=== PATIENT | female | born 1960 | race Caucasian/White ===

== ENCOUNTER 2023-09-11 10:08 | Inpatient (IN) | payer OTHER, SELFPAY ==
[2023-09-11] VITALS (16 sets, daily range): BP systolic 85–120; BP diastolic 63–91; PULSE 2–123; BMI 24.0; BMI 22.5
[2023-09-11] MEDS: DUONEB 3 ML INH ×2 (05:41→14:00)
[2023-09-11 06:08] LABS: % Basophils 0.2 % (0-2); % Immature Granulocytes 0.7 % (0-0.5); % Lymphocytes 2.8 % (20.5-51.1); % Monocytes 6.3 % (1.7-9.3); Absolute Immature Granulocytes 0.1 10^3/uL (0-0.05); Absolute Lymphocytes 0.6 10^3/uL (1.2-3.4); Absolute Monocytes 1.3 10^3/uL (0.1-0.6); Absolute Neutrophils 18.2 10^3/uL (1.4-6.5); Hemoglobin 12.4 g/dL (12.0-16.0); Mean Corp Hgb Conc. 31.8 g/dL (33.0-37.0); Mean Corpuscular Hgb 30.9 pg (27.0-31.0); Mean Corpuscular Volume 97.3 fL (81.0-99.0); Mean Platelet Volume 10.6 fL (7.4-10.4); Nucleated Red Blood Cells % 0 %; Platelet Count 304 10^3/uL (130-400); Red Blood Cell Count 4.01 10^6/uL (4.20-5.40); Red Cell Dist. Width 15.6 % (11.5-14.5); White Blood Cell Count 20.2 10^3/uL (4.8-10.8)
[2023-09-11 06:20] LABS: Lactic Acid 3.9 mmol/L (0.7-2.0)
[2023-09-11 06:22] LABS: B.E. 5.9 mmol/L; HCO3 32.5 mmol/L (21-28); O2 Saturation % 99.1 % (94-98); PCO2 55 mmHg (32-35); PO2 101 mmHg (83-108); pH 7.38 (7.35-7.45)
[2023-09-11 06:31] LABS: Albumin 3.4 g/dl (3.5-5.0); Alkaline Phosphatase 109 U/L (38-126); Blood Urea Nitrogen 41 mg/dl (7-17); Carbon Dioxide 35 mmol/L (22-30); Chloride 104 mmol/L (98-107); Glucose 139 mg/dl (70-99); Potassium 5.2 mmol/L (3.5-5.1); Sodium 146 mmol/L (135-145); Total Protein 6.8 g/dl (6.3-8.2); eGFR > 60.00
[2023-09-11 06:38] LABS: ALT (SGPT) 665 U/L (0-35); AST (SGOT) 984 U/L (14-36); NT-proBNP > 27000 pg/ml; Troponin I 0.131 ng/ml
[2023-09-11 06:45] LABS: COVID-19 Antigen Negative (Negative)
[2023-09-11] MEDS: ZOSYN 50 IV (07:01)
--- NOTE | 2023-09-11 07:03 | ED.GENMED ---
History of Present Illness
General
Chief Complaint: Breathing Problem
Source: spouse, family, ambulance crew and snf records
Exam Limitations: clinical condition
Time Seen by Provider: 09/11/23 05:23
Nursing documentation reviewed up to this point in time: agreed with
Travel History
Have you had any contact with someone who has COVID-19?: Unable to Answer
Do you have any symptoms of coronavirus? Fever > 100 degrees, chills, cough, shortness of breath, sore throat, loss of taste or smell, muscle aches, or headache?: Unable to Answer
History of Present Illness
History of Present Illness:
62-year-old female with a past medical history of Wibaux's disease, chronic dysphagia who presents to the emergency room from snf via EMS for evaluation of respiratory distress. Patient is companied by her and her daughter who
are at the bedside. She cannot meaningfully participate in history she is nonverbal/unresponsive and this is her baseline due to advanced Wibaux's disease. According to EMS nursing staff at [facility] noticed that she was having increasing
shortness of breath and wheezing over the past 24 hours and appeared to be in distress earlier this morning and so EMS was called to bring her to the hospital. She was tachypneic and hypoxic for EMS. According to family she had a recent admission
at [facility] in July for pneumonia and also had a humerus fracture that was treated nonoperatively. Patient is a DNR/DNI.
Review of Systems
Review of Systems
Unable to obtain full review of systems at this time due to: due to acuity
All Other Systems: Not applicable
Phy Exam
Physical Exam
Physical Exam:
General: Laying in bed eyes open but not responsive to verbal stimuli; winces to pain
Head: Normocephalic, atraumatic
Eyes: Conjunctiva normal, pupils equal round and reactive to light bilaterally
Throat: Dry mucous membranes
Neck: Trachea midline, no JVD
Lungs: Patient is tachypneic, hypoxic, increased work of breathing, diffuse rhonchorous breath sounds
Heart: Tachycardia with regular rhythm, no murmurs, gallops, or rubs appreciated
Abd: Soft, non distended, no masses
Extremities: Warm and well-perfused with good pulses in all extremities
Scores
Heart Failure Risk
Heart Failure Risk Score: Not Applicable
Heart Score for Chest Pain Patients
STEMI patient?: Not applicable
Withdrawal Assessment of Alcohol
Withdrawal Assessment Completed?: Not applicable
Course
Orders/Labs/Results
Orders:
Orders
09/11/23 05:09
Electrocardiogram (*1) Urgent
Reason for Study: Other
Other Reason for Exam: Respiratory Distress
Cardiac Monitoring- Treatment ONCE
EKG- Treatment ONCE
IV Insert/Care/Rem.- Treatment PRN
CR Chest Portable - 1 View Urgent
Comment:
Reason For Exam: respiratory distress
Reason Study Needs to be Portable: Patient Unstable
O2 Therapy [RESP] Urgent
Titrate/Wean O2 to maintain O2 sat greater than (%): 93
Special Instructions: TO MAINTAIN CONTINUOUS O2 SATS >/= 93%
Pulse Ox/cont/shift [RESP] Urgent
Quantity: 1
Special Instructions: continuous pulse ox
09/11/23 05:36
Ipratropium/Albuterol Sulfate [Duoneb] 3 ml INH R NOW STA
09/11/23 05:37
Urinalysis Reflex To Culture Urgent
Piperacillin/Tazo 3.375 Gram [Zosyn] 3.375 gram in 50 ml IV NOW
Vancomycin [Vancocin] 1,250 mg 0.9% Sodium Chloride 250 ml [Nss] 250 ml IV NOW
09/11/23 05:52
Complete Blood Count/With Diff Urgent
Comprehensive Metabolic Panel Urgent
NT-proBNP Urgent
Troponin I Urgent
09/11/23 05:54
COVID-19 Antigen Urgent
Source: Nasal Swab
Lactate Level [Lactic Acid] Urgent
Blood Culture Q30M
[facility] Source: Blood/Venous
Specimen Description:
Blood Culture Q30M
[facility] Source: Blood/Venous
Specimen Description:
Influenza A+B Rapid Molecular Urgent
[facility] Source: Nasal Swab
Specimen Description:
09/11/23 05:59
ABG [Arterial Blood Gas] Urgent
%Oxygen/Room Air: 88
09/11/23 06:22
0.9% Sodium Chloride 1000 ml [Nss] 1,000 ml IV BOLUS
09/11/23 07:08
0.9% Sodium Chloride 250 ml [Nss] 250 ml IV BOLUS
Abnormal Lab Results
09/11/23 09/11/23 09/11/23
05:52 05:54 05:59
WBC 20.2 H 10^3/uL
(4.8-10.8)
RBC 4.01 L 10^6/uL
(4.20-5.40)
MCHC 31.8 L g/dL
(33.0-37.0)
RDW 15.6 H %
(11.5-14.5)
MPV 10.6 H fL
(7.4-10.4)
Abs Immat Gran (auto) 0.1 H 10^3/uL
(0-0.05)
Absolute Neuts (auto) 18.2 H 10^3/uL
(1.4-6.5)
Absolute Lymphs (auto) 0.6 L 10^3/uL
(1.2-3.4)
Absolute Monos (auto) 1.3 H 10^3/uL
(0.1-0.6)
Immature Gran % 0.7 H %
(0-0.5)
Neutrophils % 90.0 H %
(42.2-75.2)
Lymphocytes % 2.8 L %
(20.5-51.1)
pCO2 55 H mmHg
(32-35)
HCO3 32.5 H mmol/L
(21-28)
ABG O2 Sat (Measured) 99.1 H %
(94-98)
Sodium 146 H mmol/L
(135-145)
Potassium 5.2 H mmol/L
(3.5-5.1)
Carbon Dioxide 35 H mmol/L
(22-30)
BUN 41 H mg/dl
(7-17)
Glucose 139 H mg/dl
(70-99)
Lactic Acid 3.9 H mmol/L
(0.7-2.0)
AST 984 H* U/L
(14-36)
ALT 665 H* U/L
(0-35)
Troponin I 0.131 H* ng/ml
Albumin 3.4 L g/dl
(3.5-5.0)
09/11/23 05:52
09/11/23 05:52
Vital Signs
Pulse: 120
Resp Rate: 30
Blood pressure: 108/75
Initial and Last Documented VS:
Initial Vital Signs
Pulse Resp BP Pulse Ox
118 20 85/63 94
09/11/23 05:10 09/11/23 05:10 09/11/23 05:10 09/11/23 05:10
Last Documented Vital Signs
Temp Pulse Resp BP Pulse Ox
36.0 C L 118 20 85/63 94
09/11/23 05:15 09/11/23 05:10 09/11/23 05:10 09/11/23 05:10 09/11/23 05:10
MDM/Problems Addressed
Differential Diagnosis Includes:
CHF, aspiration, pneumonia, bronchitis, PE
MDM/Problems Addressed:
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 She arrived was hypotensive to 85/63, tachycardia to the 110s, tachypneic, increased work of breathing, hypoxic,
hypothermic. Physical exam as above. She was transitioned to BiPAP with improvement in work of breathing although she remains mildly tachypneic; oxygenation normalized on BiPAP. Placed on IV send labs including a CBC, CMP, lactate, blood
cultures, troponin, BNP. Swab for COVID and flu. Will check an ABG. Will check a stat chest x-ray and EKG. Will monitor closely reassess after the above.
Chest x-ray reviewed by me shows essentially white out of the left side difficult to ascertain if this is simply large pleural effusion or whether there could be mucous plugging. Will treat with a DuoNeb. Will cover with antibiotics as there is
concern for underlying pneumonia especially given her history of aspiration/dysphagia. With recent hospitalization within 90 days will cover for healthcare associated pneumonia. IV fluids in progress. Continue to monitor.
Labs reviewed: CBC shows leukocytosis to 20.2. CMP shows hypernatremia, mild hyperkalemia, elevated lactate at 3.9, transaminitis, elevated troponin and BNP�concern at this point for sepsis secondary to pneumonia. Covered with broad-spectrum
antibiotics as above. IV fluids in progress�she does have severely elevated BNP will be cautious with fluid resuscitation, early pressors as needed. Will admit for continued management�case discussed with hospitalist.
Chronic conditions affecting care:
Advanced Wibaux's disease
*Radiology
Radiology exam reviewed: preliminary read by ED provider
*Pulse Oximetry
Patient hypoxic: yes
*EKG
Interpreted by ED Provider?: Yes
Heart Rate: 116
Rate: tachycardiac
Rhythm: sinus
[place]: normal axis
Interval: normal interval
QRS Pattern: normal QRS
Ischemia: non-specific ST changes
*Critical Care Note
Total Time (30-74mins, 75-104mins- exclusive of procedures): 45
comment:
Critical care statement: A total of 45 minutes of critical care time was provided for this patient. This includes management of unstable vital signs, evaluation of the patient at bedside, frequent reassessment, discussion with
consultants/hospitalist, and review of pertinent medical records. This time was separate from time utilized to perform any aforementioned documented procedures
Data Reviewed
Source: records, spouse, family, ambulance crew and snf records
Patient Management
Discussion with other providers: Hospitalist (Discussed with hospitalist)
Escalation/DeEscalation of care consider admission/obs:
Admission indicated
ED Attending Note
-
Portions of this chart may have been created with voice recognition software.� Occasional wrong word or��sound alike� substitutions may have occurred due to the inherent limitations of voice recognition software.
Discharge Plan
Departure
Patient Disposition: Admit
Date of Disposition: 09/11/23
Time of Disposition: 07:11
Admit to doctor: Beba
Presentation/result/management discussed w/ accepting MD/DO: Hospitalist
Discharge Problem:
Severe sepsis, Pneumonia, Pleural effusion, Acute respiratory failure
Referrals:
Raymundo Gamble I., DO [Family Provider] -
Interventions
Interventions:
*Risk Screen - Suicide Last Done: 09/11/23 05:10
*General Assessment Last Done: 09/11/23 05:10
*Neglect/Abuse Screening Last Done: 09/11/23 05:10
*ED COVID-19 Vaccine History Last Done: 09/11/23 05:10
Discharge Date and Time
Print Language: SYRIAN
[2023-09-11] MEDS: NSS 250 IV (07:09)
[2023-09-11] MEDS: VANCOCIN 275 MG IV (08:18)
--- NOTE | 2023-09-11 08:48 | HPS.HSE ---
Family Physician
-
Family Physician: Raymundo Gamble
Chief Complaint
-
Shortness of breath
History of Present Illness
62-year-old female with a past medical history of advanced Panfilo's disease, chronic dysphagia, and recent right humerus fracture was sent from [facility] for respiratory distress. Staff at the care home noticed that she was
having increasing shortness of breath and wheezing over the past 24 hours. She was found to be febrile, tachypneic, with chest x-ray concerning for pneumonia. She was recently at [facility] in July through August for right humerus
fracture, that was complicated by pneumonia. She has been at [facility] for 2 weeks now.
Medical History
Past Medical History
Past Medical History: Reports Other
Additional Past Medical History:
Advanced Manatee's disease
Dysphagia
Right humerus fracture
Recent pneumonia
Past Surgical History: Reports Other
Additional Past Surgical History:
x 2
Cholecystectomy
Hysterectomy
Social History
Tobacco: Non-smoker
Alcohol: Former
Drug: Marijuana (Medical marijuana)
Personal:
Family History
Family History: Not pertinent
Allergies / Home Medications
Allergies reflects when Allergies were last updated in [facility].
Home Medications with original date entered in [facility]
Allergy/Medication List:
Allergies
Allergy/AdvReac Type Severity Reaction Status Date / Time
No Known Allergies Allergy Verified 09/11/23 07:57
Home Medications Table - record
�Medication �Instructions �Recorded �Confirmed
Saccharomyces boulardii 250 mg 250 mg PO BID Gastrointestinal 09/11/23 09/11/23
capsule Issue
acetaminophen 325 mg tablet 650 mg PO Q6H PRN mild pain 09/11/23 09/11/23
bisacodyl 10 mg rectal suppository 10 mg CO DAILYPRN PRN no bm and 09/11/23 09/11/23
mom ineffective
cefuroxime axetil 250 mg tablet 250 mg PO BID Infection 09/11/23 09/11/23
ipratropium 0.5 mg-albuterol 3 mg 3 ml inhalation R QIDPRN PRN 09/11/23 09/11/23
(2.5 mg base)/3 mL nebulization wheezing
soln
polyvinyl alcohol 1.4 % eye drops 1 drp BOTH EYES QIDPRN PRN dry eyes 09/11/23 09/11/23
potassium chloride 10 mEq 10 meq PO DAILY Electrolyte 09/11/23 09/11/23
tablet,extended release Repletion
sennosides 8.6 mg tablet (senna) 17.2 mg PO HS Constipation 09/11/23 09/11/23
trazodone 50 mg tablet 50 mg PO HS Mental Health/Anxiety 09/11/23 09/11/23
Review of Systems
-
Unable to obtain full review of systems at this time due to: Acuity
Physical Exam
Vital Signs
Vital Signs
Temp Pulse Resp BP Pulse Ox
98.4 F 120 30 108/75 95
09/11/23 08:00 09/11/23 07:15 09/11/23 07:15 09/11/23 07:15 09/11/23 07:15
Physical Exam
General: Respiratory Distress
HEENT: NormoCephalic, Anicteric and Moist mucous membranes
Respiratory: Rales and Rhonchi
Cardiac: Tachycardia
GI: Soft, Non Tender, Non Distended and Normal Bowel Sounds
Musculoskeletal: No Clubbing and No Cyanosis
Neuro: Awake and Other
Laboratory Results
-
09/11/23 05:52
09/11/23 05:52
Laboratory Results
pH 7.38 (7.35-7.45) 09/11/23 05:59
pCO2 55 mmHg (32-35) H 09/11/23 05:59
pO2 101 mmHg (83-108) 09/11/23 05:59
HCO3 32.5 mmol/L (21-28) H 09/11/23 05:59
Lactic Acid 3.9 mmol/L (0.7-2.0) H 09/11/23 05:54
Total Bilirubin 1.0 mg/dl (0.2-1.3) 09/11/23 05:52
AST 984 U/L (14-36) H* 09/11/23 05:52
ALT 665 U/L (0-35) H* 09/11/23 05:52
Alkaline Phosphatase 109 U/L (38-126) 09/11/23 05:52
Troponin I 0.131 ng/ml H* 09/11/23 05:52
Impression/Plan
-
HPI: 62-year-old female with a past medical history of advanced Manatee's disease, chronic dysphagia, and recent right humerus fracture was sent from [facility] for respiratory distress. Staff at the care home noticed that she
was having increasing shortness of breath and wheezing over the past 24 hours. She was found to be febrile, tachypneic, with chest x-ray concerning for pneumonia. She was recently at [facility] in July through August for right
humerus fracture, that was complicated by pneumonia. She has been at [facility] for 2 weeks now.
#Acute hypoxic respiratory failure
#Sepsis secondary to pneumonia
#Probable aspiration pneumonia
Currently on BiPAP, consult pulmonology
Influenza negative, COVID-negative
Cover for aspiration and HCAP with vancomycin, Zosyn
Check urine Legionella antigen, strep antigen, sputum culture, MRSA PCR, consult SPL
Trend lactic acid, fever and white count
#Transaminitis
Possibly due to sepsis
Check liver ultrasound, trend
#Advanced Manatee's disease
Patient's condition continued to worsen per family
Usually eats a pur�ed diet with nectar thickened liquids
#Hypernatremia
Give 0.2 normal saline at 100 cc/h, trend sodium
#Hyperkalemia
Monitor K
#Nonischemic myocardial injury
From sepsis
#Recent left humerus fracture
Was at [facility] from July through August
Received nonsurgical management
DVT prophylaxis�subcu Lovenox
DNR/DNI
Updated family at bedside
Total time spent to see the patient on the floor, examine the patient, review data and lab results, discuss treatment plan with patient, nursing staff around 75 minutes.
--- NOTE | 2023-09-11 10:10 | CON.PUL ---
Consultation
Consultation Request
Date/Time Consultation Requested: 09/11/2023-8 AM
Date/Time Consultation Performed: 09/11/2023-8:15 AM
Requesting Provider: Hospitalist
Performing Provider: Dr. Robertson
Reason for Consultation: Shortness of breath pneumonia
Medical History
-
Chief Complaint: Shortness of breath
History of Present Illness:
62-year-old female with history of Panfilo's chorea, chronic dysphagia who presented with respiratory distress noted to have pneumonia requiring noninvasive ventilation as patient is a DNI-pulmonary consulted for pneumonia/respiratory failure
09/11/2023. Patient is lethargic and noncommunicative, history obtained from family members that were at the bedside. She has been ill for nearly 2 weeks. They have tried nebulizers possibly antibiotics and possibly steroids. She is a lifelong
non-smoker though she was on medical marijuana. She is never been told she had lung disease prior to the Nobles's chorea and aspiration risks. Additional review of systems was unobtainable.
Past Medical History
Past Medical History: None (Nobles's chorea. Ambulatory dysfunction. Aspiration risk. skilled nursing patient.)
Social History
Tobacco: Non-smoker
Alcohol: None
Drug: None
Personal:
Living: With Family
Occupational Exposures: No known asbestos exposure
Environmental Exposures: No known tuberculosis exposure
Family History
Family History: Reviewed & Not Pertinent
Allergies / Home Medications
Allergies
Allergy/AdvReac Type Severity Reaction Status Date / Time
No Known Allergies Allergy Verified 09/11/23 07:57
Home Medications
�Medication �Instructions �Recorded �Confirmed �Last Taken �Type
Saccharomyces boulardii 250 mg 250 mg PO BID 09/11/23 09/11/23 Unknown History
capsule
acetaminophen 325 mg tablet 650 mg PO Q6H PRN mild pain 09/11/23 09/11/23 Unknown History
bisacodyl 10 mg rectal suppository 10 mg NC DAILYPRN PRN no bm and 09/11/23 09/11/23 Unknown History
mom ineffective
cefuroxime axetil 250 mg tablet 250 mg PO BID 09/11/23 09/11/23 Unknown History
ipratropium 0.5 mg-albuterol 3 mg 3 ml inhalation R QIDPRN PRN 09/11/23 09/11/23 Unknown History
(2.5 mg base)/3 mL nebulization wheezing
soln
polyvinyl alcohol 1.4 % eye drops 1 drp BOTH EYES QIDPRN PRN dry eyes 09/11/23 09/11/23 Unknown History
potassium chloride 10 mEq 10 meq PO DAILY 09/11/23 09/11/23 Unknown History
tablet,extended release
sennosides 8.6 mg tablet (senna) 17.2 mg PO HS 09/11/23 09/11/23 Unknown History
trazodone 50 mg tablet 50 mg PO HS 09/11/23 09/11/23 Unknown History
Review of Systems
-
Unable to Obtain full review of systems at this time due to: Other (Per HPI)
Vitals / Labs / Diagnostic Testing
Vital Signs
Temp Pulse Resp BP Pulse Ox
98.4 F 114 34 101/73 93
09/11/23 08:00 09/11/23 09:30 09/11/23 09:30 09/11/23 09:00 09/11/23 09:30
Lab Data
09/11/23 05:52
09/11/23 05:52
Laboratory Results
09/11/23
05:59
pH 7.38
pCO2 55 H
pO2 101
HCO3 32.5 H
O2 Delivery Level
Microbiology
09/11/23 05:54 Nasal Swab Influenza Types A & B ([facility]) - Final
Negative for Influenza A & B, NAAT
Negative results must be combined with clinical observations
and patient history.
Nucleic Acid Amplification test (NAAT)performed on the
[employer] platform.
Diagnostic Testing:
Physical Exam
-
Exam:
Well-nourished and well-developed in no apparent distress
HEENT-atraumatic, normocephalic, noninvasive ventilation mask over face
Neck-supple, no JVD, no bruit
Heart-regular rate and rhythm-no murmurs, rubs or gallops
Chest with diminished breath sounds, crackles at the bases, few rhonchi but equal aeration
Abdomen-soft, nontender, nondistended, no hepatosplenomegaly
Extremities-no cyanosis, clubbing, edema and good peripheral pulses
Integument-intact, no rashes, lesions or ecchymosis
Neurologically not alert, not oriented not moving extremities
Assessment
-
62-year-old female with history of Nobles's chorea, chronic dysphagia who presented with respiratory distress noted to have pneumonia requiring noninvasive ventilation as patient is a DNI-pulmonary consulted for pneumonia/respiratory failure
09/11/2023.
Respiratory failure-acute hypoxemic and hypercapnic due to aspiration pneumonia
Aspiration pneumonia
Advanced Nobles's chorea
Leukocytosis
Hypernatremia
Mild hyperkalemia
Lactic acidosis
Elevated LFTs
Elevated troponin
DNI
Conditions present prior to admission:
Nobles's chorea
Aspiration risk
Plan
Respiratory decompensation likely due to pneumonia, mucous plugging, and atelectasis
Chest x-ray personally reviewed-air bronchograms present-suspect pneumonia-mild CHF, mucous plugs, and atelectasis
Aspiration precautions
Noninvasive ventilation
Admission serum bicarb and ABG suggests chronic mild hypercapnic respiratory failure likely from progressive neuromuscular disease/restrictive lung disease
Noninvasive ventilation as tolerated
If tolerating may benefit at the time of discharge
Mucolytic's
Nebulizers if needed-currently not bronchospastic-no history of lung disease
Hold off on steroids
Follow radiographically
Consider left chest ultrasound-thoracentesis if there is enough fluid
Consider CT chest for better pulmonary parenchyma evaluation
Check cultures
Empiric antibiotics to cover nosocomial sources-vancomycin and Zosyn initiated
Monitor leukocytosis
Follow troponin
Consider cardiology evaluation-abnormal EKG, elevated troponin
Check echocardiogram
Replace electrolytes
Diuresis as tolerated
Monitor renal function, electrolytes, intake/output, lower extremity edema and weight
Replace electrolytes as needed
Monitor LFTs
DVT prophylaxis
Nutrition with aspiration precautions
Bedside range of motion
Reviewed with family members at the bedside-DNI status noted
Diagnostic data:
Chest x-ray 09/11/2023-complete left lung opacification which may reflect pleural effusion atelectasis or pneumonia, right mid to upper lung zone airspace disease consistent with pneumonia, probable underlying mild diffuse pulmonary edema
Data Reviewed
-
EKG: Report reviewed by me
Radiology: Image personally visualized and interpreted and Report reviewed by me
Medical Tests (Nuc Med, Echo etc): Report reviewed by me
Labs: Labs reviewed by me
Old Records: Reviewed
Total Time Spent with Patient (in minutes): 65
--- NOTE | 2023-09-11 11:30 | WOUNDNOTE ---
[facility] RN note: Patient admitted with sob, pneumonia requiring non invasive ventilation. Bipap in place with Exuderm Satin on nasal bridge for padding. Patient admitted from [facility]. Patient is .
See H&P for complete history.
PMH: Panfilo's chorea, chronic dysphagia, stage 4 sacral pressure injury, R elbow wound.
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 R elbow full thickness wound suspect r/t pressure stage 3 vs unstageable, pink with some purple tissue. Patient has a R
shoulder brace. R dorsal great toe with dry black scab suspect an abrasion. L hammonds dry ecchymotic red linear abrasion.
Appetite: NPO.
Pressure redistribution devices in place: Centrella Max air bed. Patient is immobile with foot drop. Air chair cushion for heels.
Plan: R elbow dressing applied. Heels off bed with air chair cushion and patient turned with help from RON Paige and RON Boudreaux. Sacral dressing changed by RON Boudreaux.
Will confirm orders with hospitalist and discussed with RON Paige.
Care plan to be updated and will follow as needed.
Note to case management of equipment requested for discharge: Air mattress if not already in place at SNF.
--- NOTE | 2023-09-11 13:10 | PTCARENOTE ---
arrived in ICU 3370 via ED stretcher, slid into bed, still on bipap 15/5 with 10 liters, resp effort noted, rate 38-40 initially, did then settle once care completed. attends saturated, changed. shoulder brace maintained to R shoulder, hard white
plastic with velcro. removed gently for skin assessment, intact. WOC RN present on unit, sacral wound assessed, foul green villasenor drainage, irrigated, packed, dressing applied. wound noted R elbow, 1 cm round, foam applied. protective foams to
heels. turned. purewick placed. IV site WNL. eyes open, twitchy movements at times, does not engage, not following commands, does not move or have any purposeful response.
--- NOTE | 2023-09-11 13:27 | PHA.VAN.IN ---
Assessment
- Assessment
Renal Function: Unknown baseline
Concomitant Antimicrobials: piperacillin/tazobactam
Plan
- Plan
Initial / Loading Dose: Vanc 1250mg - 09/10 08:18
Maintenance Regimen: dosing by level - give additional 500mg x1 at 1800
Monitoring: random 09/11 0600
MRSA Screen: Ordered per protocol
BUN elevated - unknown baseline SCR & BUN
Renal function may be overestimated if low muscle mass
Pharmacokinetics Vancomycin I
- -
Patient Age: 62
Patient Sex: Female
Vancomycin Day #: 1
Indication: Pulmonary/Respiratory
Requesting Provider: Dr. San
Pertinent Antimicrobial Allergies:
NKDA
Height / Weight:
Height 5 ft 6 in
Actual Weight 63.1 kg
Pertinent Past Medical History: Parker's chorea
- Vital Signs / Lab Results
Temp Pulse Resp BP Pulse Ox
100.8 F H 119 31 120/91 92
09/11/23 13:16 09/11/23 13:15 09/11/23 13:15 09/11/23 12:45 09/11/23 12:45
Lab Results - Hematology
09/11/23
05:52
WBC 20.2 H
Lab Results - Chemistry
09/11/23
05:52
BUN 41 H
Creatinine 0.8
Albumin 3.4 L
09/11/23
05:54
Lactic Acid 3.9 H
Microbiology Results
09/11/23 05:54 Influenza Types A & B ([facility]) - Final
Nasal Swab Negative for Influenza A & B, NAAT
Negative results must be combined with clinical observations
and patient history.
Nucleic Acid Amplification test (NAAT)performed on the
[employer] platform.
--- NOTE | 2023-09-11 13:30 | WOUNDNOTE ---
R GREAT TOE (DORSAL)
--- NOTE | 2023-09-11 13:30 | WOUNDNOTE ---
SACRUM (TO BONE)
--- NOTE | 2023-09-11 13:30 | WOUNDNOTE ---
SACRUM (TO BONE)(with photo flash)
[2023-09-11] MEDS: MORPHINE SULFATE 2 MG IV ×3 (15:01→17:03)
--- NOTE | 2023-09-11 15:13 | PTCARENOTE ---
family bedside, med with morphine as ordered, explained plan and expectations, questions answered. off monitor, remains positioned for comfort. pastoral care in earlier, supported family in process. listening to patients favorite music group.
--- NOTE | 2023-09-11 15:24 | HOSPNOTE ---
Referral received and was asked to follow up in the am. Patient is presently on comfort.
[2023-09-11] MEDS: ATIVAN 1 MG IV (15:36)
[2023-09-11] MEDS: TRANSDERM-SCOP 1 PATCH TRANSDERM (15:36)
--- NOTE | 2023-09-11 15:45 | RESPNOTE ---
Patient is taken off the Bipap mask as per the physician order to comfort care.
--- NOTE | 2023-09-11 16:18 | PTCARENOTE ---
med as noted, family present, questions asked and answered. off bipap, now eyes are closed (had been wide on oxygen modality) , occas grimace. family aware of plan, for transfer to when bed available.
--- NOTE | 2023-09-11 16:25 | W.PN.UPDATE ---
Update Note
Progress Note Update
Family meeting held with patient's and 3 daughters.
Comfort care was explained to them.
They wish to proceed with comfort care for the patient.
Stop IV antibiotics, IV fluids, start IV morphine for dyspnea, consult hospice, transfer to [facility].
--- NOTE | 2023-09-11 16:44 | PTCARENOTE ---
moved to new bed for 2127, report given. oral care. shonna maintained. R shoulder brace intact.
--- NOTE | 2023-09-11 17:00 | PTCARENOTE ---
see RDOS scale, family present, discussed transfer to new room, still with facial grimace, med as noted and will transfer via bed to new room. skin warm and dry, positioned for comfort.
--- NOTE | 2023-09-11 17:24 | PTCARENOTE ---
Patient arrived from ICU to , accompanied by family. Patient is unresponsive, unable to obtain blood pressure nor pulse ox. Faint heart tone noted during auscultation. Lower extremities are cold to touch.
--- NOTE | 2023-09-11 17:57 | PTCARENOTE ---
Patient pulseless. Crossover MD messaged to pronounce patient. Family remains at bedside.
--- NOTE | 2023-09-11 18:13 | W.PN.DEATH ---
Pronouncement of
-
Called to see patient to pronounce.
No spontaneous heart tones or respirations noted.
Patient not responsive to verbal stimuli.
Patient is pronounced .
Time of : 17:40
Date of : 09/11/23
Cause of : Acute Hypoxic respiratory failure
Sepsis secondary to Pneumonia
Possible Aspiration Pneumonia
Family Notified: Yes
--- NOTE | 2023-09-11 18:20 | W.PN.UPDATE ---
Addendum entered and electronically signed by JACKELIN Zarate 09/12/23 04:45:
attempted to call assistant professor of dietetics again to report at 199909/11/23 and was told assistant professor of dietetics was still not available due to 'police duty' and my call would be returned..As of 44409/12/2023 it has not been. Will pass on in report to make another attempt this
morning.
Original Note:
Update Note
Progress Note Update
Called assistant professor of dietetics's Office since patient just got admitted this morning. Spoke with Kimberly from answering service. Currently all assistant professor of dietetics's are on 'police duty' and will return and give us a call. They will call the hospital and will need to speak to
oncall person.
--- NOTE | 2023-09-11 18:44 | PTCARENOTE ---
[facility] called.
--- NOTE | 2023-09-11 21:06 | W.DCSUMMARY ---
Discharge Summary
Discharge Data
Date of Admission: 09/11/23
Date of Discharge: 09/11/23
-
Pending Results: No
Hospital Course
Date of admission: 09/11/2023
Date of expiration: 09/11/2023
Time of expiration: 17:40
Causes of :
Acute hypoxic respiratory failure
Sepsis
Aspiration pneumonia
Dysphagia
Advanced Panfilo's disease
Transaminitis
Hyponatremia
Hyperkalemia
Nonischemic myocardial injury
Recent left humerus fracture
Consults: Pulmonology
Hospital course:
62-year-old female with a past medical history of advanced Panfilo's disease, chronic dysphagia, and recent right humerus fracture was sent from [facility] for respiratory distress. Patient was found to have respiratory failure
requiring BiPAP, and sepsis from aspiration pneumonia. She was seen in conjunction with pulmonology, and treated with IV antibiotics. Patient has a history of advanced Panfilo's disease. Her and daughters understand that her disease
will continue to worsen. On the day of hospital admission, comfort care was discussed with patient's family. They wished to transition the patient to comfort care measures only. Patient was transitioned to comfort care measures. She peacefully
. Family was present, condolences were offered.
Discharge Plan
-
Patient Disposition:
Date/Time
Date/Time: 09/11/23 17:51
Discharge Date and Time
Discharge Date/Time: 09/11/23 22:14
Print Language: SAMI
--- NOTE | 2023-09-11 21:09 | PTCARENOTE ---
[phone] and spoke w/ Marina. Marina explained this was the fourth call regarding patient. Marina explained that the cornetist is out on 'police duty' and unsure when he will be returning to the office. Marina
explained that office has patient information and will call hospital back when cornetist returns.
--- NOTE | 2023-09-11 21:12 | PTCARENOTE ---
[facility] [phone] and spoke w/ Marina. Marina explained this was the fourth call regarding patient. Marina explained that the consumer affairs director is out on 'police duty' and unsure when consumer affairs director will be returning to the
office. Marina explained that the office has patient information and will call hospital back when consumer affairs director returns.
--- NOTE | 2023-09-11 21:35 | PTCARENOTE ---
This RN notified Corey, Nursing Aligning Checker at [facility], at that patient passed.
--- NOTE | 2023-09-11 21:47 | PTCARENOTE ---
Patient's demographics and H&P Faxed to [phone], Attention: Adrián Escobar, Mammal Control Agent AND received report attached to fax and patient's chart.
--- NOTE | 2023-09-12 09:31 | CM ---
Patient on 09/11/23 @ 5:40PM.
== END 2023-09-11 22:14 | disposition expired | DRG 871 ==
LOC: 2 NORTH 10:08
PROVIDERS: ADMITTING PHYSICIAN Family Medicine; CONSULT PHYSICIAN Internal Medicine Critical Care Medicine; EMERGENCY PHYSICIAN Emergency Medicine; FAMILY PHYSICIAN Internal Medicine
PROC: 5A09357 Assistance with Respiratory Ventilation, Less than 24 Consecutive Hours, Continuous Positive Airway Pressure (ICD-10-PCS; 2023-09-11)
DX: A41.9 Sepsis, unspecified organism (principal); J18.9 Pneumonia, unspecified organism; J69.0 Pneumonitis due to inhalation of food and vomit; J96.01 Acute respiratory failure with hypoxia; J96.02 Acute respiratory failure with hypercapnia; E87.20 Acidosis, unspecified; E87.0 Hyperosmolality and hypernatremia; Z51.5 Encounter for palliative care; Z66 Do not resuscitate; G10 Huntington's disease; I5A Non-ischemic myocardial injury (non-traumatic); E87.1 Hypo-osmolality and hyponatremia; R65.20 Severe sepsis without septic shock; R13.19 Other dysphagia; I95.9 Hypotension, unspecified; E87.5 Hyperkalemia; R74.01 Elevation of levels of liver transaminase levels; R68.0 Hypothermia, not associated with low environmental temperature; S42.301D Unspecified fracture of shaft of humerus, right arm, subsequent encounter for fracture with routine healing; X58.XXXD Exposure to other specified factors, subsequent encounter; Z79.899 Other long term (current) drug therapy; Z87.01 Personal history of pneumonia (recurrent); Z11.52 Encounter for screening for COVID-19
CPT/HCPCS: 71045; 80053; 82805; 83605; 83880; 84484; 85025; 87040; 87205; 87502; 87811; 93005; 94640; 94660; 96365; 96367; 99291